=== PATIENT | male | born 1950 | race Caucasian/White ===

== ENCOUNTER 2018-11-01 08:30 | Day surgery (SDC) | payer OTHER ==
[~2018-11-01] VITALS: Ht 190.5 cm; Wt 86.1 kg
[~2018-11-01 08:30] MED LIST: ACID REDUCER 1150 MG PO; ALBU90OI61 INH; AMIT25 PO; AMIT50 PO; Bentyl20 MG PO; FLUT1DIS2 INH; FURO20 PO; HYDR1TAB94 PO; LEVSOD75 PO; LISI5 PO; Lopressor 25 mg25 MG PO; METF500 PO; METO25; MIRALAX17 GM PO; OMEPRAZOLE MAGN20 MG PO; ONDA4ODT MM; POTCHL10ER PO; PREG50 PO; PROM25S PR; Percocet 10-321 EACH PO; SENN187 PO; SIMV10 PO; Simvastatin20 MG PO; TIZANIDINE HCL4 MG PO; Triamcinolone A15 G3 TOP; Vitamin D2000 UNIT PO; XARELTO15 MG PO; XARELTO20 MG PO; Zofran Odt4 MG SL; Zofran4 MG PO
--- NOTE | 2018-11-01 14:53 | NUR ---
11/01/18 5209 Shant Arvizu LATE ENTRY 1346 PATIENT REPORTS 10/10 PAIN IN ABDOMEN. PATIENTS ABDOMEN IS RIGID WHEN PALPATED. PATIENT HAS BEEN TOSSING SIDE TO SIDE MOANING AND HAS NOW BEEN REPOSITIONED SITTING UPRIGHT IN BED. PATIENT REPORTS NAUSEA AND BEGAN BELCHING. PATIENTS BELCHING HAS LEAD TO CLEAR/FOAMY MUCUS EMESIS. EMESIS BAG GIVEN TO PATIENT. DR ARCE INFORMED OF PATIENT STATUS. DR ARCE GAVE VO FOR A 2V ABDOMEN XRAY. MAX IN XRAY NOTIFIED OF PATIENT IN SDU REQUIRING XRAY. FIXED INCOME ANALYST MAX TOOK XRAY OF PATIENT AND THEN CALLED BACK SHORTLY AFTER INFORMING ME ([email or web address]) THAT THE RADIOLOGIST DOES NOT SEE ANY FREE AIR AND PATIENT LOOKS GOOD. DR ARCE INFORMED OF PATIENT IMAGES AND WHAT RADIOLOGIST STATED. DR ARCE SAID THE PATIENT IS OK'D TO BE DISCHARGED. IF PATIENT CONTINUES TO HAVE PAIN HAVE HIM CALL THE DR'S OFFICE IMMEDIATELY. PATIENT INFORMED OF DR ORDERS TO CALL IF HAVING CONTINUED PAIN. PATIENT AGREES WITH PLAN. PAIN REASSESSMENT- PATIENT REPORTS 7/10 PAIN AND IS GETTING BETTER HE IS STANDING UP. NURSE SANDI W/ PATIENT TO HIS RIDE HOME
[2018-11-04] MEDS ORDERED: Zantac150 MG PO (06:51)
== END 2018-11-01 14:35 | disposition home or self-care (01) ==
LOC: ORSCSDS 08:30
PROVIDERS: Internal Medicine Gastroenterology
PROC: 0DB68ZX Excision of Stomach, Via Natural or Artificial Opening Endoscopic, Diagnostic (ICD-10-PCS; principal; 2018-11-01 10:00)
PROC: 0DB98ZX Excision of Duodenum, Via Natural or Artificial Opening Endoscopic, Diagnostic (ICD-10-PCS; principal; 2018-11-01 10:00)
PROC: 0DBM8ZX Excision of Descending Colon, Via Natural or Artificial Opening Endoscopic, Diagnostic (ICD-10-PCS; 2018-11-01 10:00)
PROC: 0DBK8ZX Excision of Ascending Colon, Via Natural or Artificial Opening Endoscopic, Diagnostic (ICD-10-PCS; 2018-11-01 10:00)
PROC: 0DBN8ZX Excision of Sigmoid Colon, Via Natural or Artificial Opening Endoscopic, Diagnostic (ICD-10-PCS; 2018-11-01 10:00)
DX: R11.2 Nausea with vomiting, unspecified (principal); K29.00 Acute gastritis without bleeding; K29.80 Duodenitis without bleeding; K21.9 Gastro-esophageal reflux disease without esophagitis; D12.2 Benign neoplasm of ascending colon; D12.4 Benign neoplasm of descending colon; D12.5 Benign neoplasm of sigmoid colon; K57.30 Diverticulosis of large intestine without perforation or abscess without bleeding; K64.8 Other hemorrhoids; R19.4 Change in bowel habit; R10.9 Unspecified abdominal pain; Z86.010 Personal history of colon polyps; Z80.0 Family history of malignant neoplasm of digestive organs; E11.22 Type 2 diabetes mellitus with diabetic chronic kidney disease; I12.9 Hypertensive chronic kidney disease with stage 1 through stage 4 chronic kidney disease, or unspecified chronic kidney disease; N18.3 Chronic kidney disease, stage 3 (moderate); E03.9 Hypothyroidism, unspecified; E78.00 Pure hypercholesterolemia, unspecified; R26.2 Difficulty in walking, not elsewhere classified; Z87.891 Personal history of nicotine dependence; I48.91 Unspecified atrial fibrillation; Z79.01 Long term (current) use of anticoagulants; Z79.84 Long term (current) use of oral hypoglycemic drugs; Z79.899 Other long term (current) drug therapy
CPT/HCPCS: 74019; 82947; 88305; 88342; J2704; J7120

== ENCOUNTER 2018-11-08 06:30 | Day surgery (SDC) | payer OTHER ==
[~2018-11-08] VITALS: Ht 185.4 cm; Wt 86.0 kg
[~2018-11-08 06:30] MED LIST changes: +Zantac150 MG PO
--- NOTE | 2018-11-08 07:34 | NUR ---
DR PENA SPEAKING WITH FRIDA ABOUT HIM DRINKING A CUP OF COFFEE AT 0600 TODAY.
--- NOTE | 2018-11-08 07:42 | NUR ---
PT HAS ELECTED TO WAIT UNTIL 1000 FOR HIS YOMAIRA/CARDIOVERSION. CALL LIGHT IN REACH.
--- NOTE | 2018-11-08 08:09 | NUR ---
PT MOVED TO RECOVERY ROOM WHILE WAITING. CALL LIGHT IN REACH.
--- NOTE | 2018-11-08 10:08 | NUR ---
PT MOVED BACK TO PROCEDURE ROOM FOR YOMAIRA/CARDIOVERSION. CALL LIGHT IN REACH.
--- NOTE | 2018-11-08 10:46 | NUR ---
DR PENA ARRIVED. TIMEOUT COMPLETED.
--- NOTE | 2018-11-08 10:50 | NUR ---
RT IN ROOM.
--- NOTE | 2018-11-08 11:01 | NUR ---
YOMAIRA COMPLETE. PT TOLERATED WELL.
--- NOTE | 2018-11-08 11:08 | NUR ---
200 J SYNCHRONIZED SHOCK DELIVERED. PT TOLERATED WELL.
--- NOTE | 2018-11-08 11:42 | NUR ---
PT EASILY AWAKEN. PT DENIES CP. CALL LIGHT IN REACH.
--- NOTE | 2018-11-08 12:01 | NUR ---
PT DRANK SIPS OF WATER WITH NO ASPIRATION.
--- NOTE | 2018-11-08 12:17 | NUR ---
FULL REPORT PROVIDED ARSLAN PATTERSON TO ASSUME CARE OF PT.
--- NOTE | 2018-11-08 13:10 | NUR ---
DR PENA IN TO SEE PT. PT HR REMAINS STABLE AT 60. PER DR JEAN NICOLAS TO DC. PT DENIES QUESTIONS. PT DC TO HOME VIA ESCORT BY .
== END 2018-11-08 22:55 | disposition home or self-care (01) ==
LOC: MHTC 06:30
DX: I48.91 Unspecified atrial fibrillation (principal); I48.92 Unspecified atrial flutter; I34.0 Nonrheumatic mitral (valve) insufficiency; R07.89 Other chest pain; E78.2 Mixed hyperlipidemia; K21.9 Gastro-esophageal reflux disease without esophagitis; I10 Essential (primary) hypertension; E11.9 Type 2 diabetes mellitus without complications; J44.9 Chronic obstructive pulmonary disease, unspecified; E03.9 Hypothyroidism, unspecified; E78.5 Hyperlipidemia, unspecified; M54.9 Dorsalgia, unspecified; G89.29 Other chronic pain; Z87.891 Personal history of nicotine dependence; Z88.8 Allergy status to other drugs, medicaments and biological substances; Z88.5 Allergy status to narcotic agent; Z79.899 Other long term (current) drug therapy; Z79.84 Long term (current) use of oral hypoglycemic drugs
CPT/HCPCS: 82947; 92960; 93005; 93010; 93312; 93325; 99152; J2250; J2310; J3010; J7030

== ENCOUNTER 2021-05-14 21:49 | Inpatient (IN) | payer OTHER ==
[~2021-05-14] VITALS: Ht 185.4 cm; Wt 87.0 kg
[~2021-05-14 21:49] MED LIST changes: +Vitamin D1000 UNI1 PO; -Vitamin D2000 UNIT PO; -XARELTO15 MG PO
[2021-05-14 22:24] LABS: BASOPHILS ABSOLUTE AUTO 0.07 K/mm3 (0.00-0.23); BASOPHILS PERCENT AUTO 1 % (0-2); EOSINOPHILS ABSOLUTE AUTO 0.17 K/mm3 (0.00-0.68); EOSINOPHILS PERCENT AUTO 2 % (0-6); Hematocrit 37.1 % (37.0-53.0); Hemoglobin 12.4 g/dL (13.5-17.5); IMMATURE GRAN ABSOLUTE AUTO 0.02 K/mm3 (0.00-0.10); IMMATURE GRAN PERCENT AUTO 0 % (0-1); LYMPHOCYTES ABSOLUTE AUTO 2.52 K/mm3 (0.84-5.20); LYMPHOCYTES PERCENT AUTO 33 % (21-46); MONOCYTES PERCENT AUTO 9 % (4-13); Mean Corpuscular HGB 30.8 pg (26.0-34.0); Mean Corpuscular HGB Conc 33.4 g/dL (31.5-36.5); Mean Corpuscular Volume 92 fL (80-100); Mean Platelet Volume 9.3 fL (9.1-12.4); NEUTROPHILS PERCENT AUTO 54 % (41-73); Platelet Count 273 K/mm3 (150-400); RDW Coefficient Variation 13.2 % (11.7-14.2); RDW Standard Deviation 45.2 fL (35.1-46.3); Red Blood Cell Count 4.02 M/mm3 (4.30-5.90); White Blood Cell Count 7.58 K/mm3 (4.00-11.30)
[2021-05-14 22:42] LABS: Albumin, Blood 3.4 g/dL (3.4-5.0); Albumin/Globulin Ratio 1.1 (0.8-1.8); Bilirubin, Total 0.3 mg/dL (0.1-1.0); Bun/Creatinine Ratio 12.9 (12.0-20.0); Calcium, Blood 8.7 mg/dL (8.5-10.1); Creatinine, Blood 1.55 mg/dL (0.60-1.20); Globulin, Blood 3.1 g/dL (2.2-4.0); Magnesium, Blood 2.1 mg/dL (1.6-2.4); Potassium, Blood 4.4 mmol/L (3.5-5.5); Total Protein, Blood 6.5 g/dL (6.4-8.2)
[2021-05-14 22:47] LABS: Troponin I 0.705 ng/mL (0.000-0.040)
[2021-05-14] MEDS ORDERED: FAMO10 PO (22:48)
[2021-05-14 23:26] LABS: Influenza A, PCR NEGATIVE (NEGATIVE); Influenza B, PCR NEGATIVE (NEGATIVE); Resp Syncytial Virus, PCR NEGATIVE (NEGATIVE); SARS-Cov-2 (COVID-19) PCR, MMC NEGATIVE (NEGATIVE)
[2021-05-15 05:54] LABS: BASOPHILS ABSOLUTE AUTO 0.09 K/mm3 (0.00-0.23); BASOPHILS PERCENT AUTO 1 % (0-2); EOSINOPHILS ABSOLUTE AUTO 0.11 K/mm3 (0.00-0.68); EOSINOPHILS PERCENT AUTO 2 % (0-6); Hematocrit 38.6 % (37.0-53.0); Hemoglobin 13.1 g/dL (13.5-17.5); IMMATURE GRAN ABSOLUTE AUTO 0.02 K/mm3 (0.00-0.10); IMMATURE GRAN PERCENT AUTO 0 % (0-1); LYMPHOCYTES ABSOLUTE AUTO 3.32 K/mm3 (0.84-5.20); LYMPHOCYTES PERCENT AUTO 44 % (21-46); MONOCYTES ABSOLUTE AUTO 0.73 K/mm3 (0.16-1.47); MONOCYTES PERCENT AUTO 10 % (4-13); Mean Corpuscular HGB Conc 33.9 g/dL (31.5-36.5); Mean Corpuscular Volume 91 fL (80-100); NEUTROPHILS ABSOLUTE AUTO 3.25 K/mm3 (1.96-9.15); NEUTROPHILS PERCENT AUTO 43 % (41-73); Platelet Count 248 K/mm3 (150-400); RDW Coefficient Variation 13.2 % (11.7-14.2); RDW Standard Deviation 44.4 fL (35.1-46.3); Red Blood Cell Count 4.23 M/mm3 (4.30-5.90); White Blood Cell Count 7.52 K/mm3 (4.00-11.30)
[2021-05-15 06:08] LABS: Bun/Creatinine Ratio 11.4 (12.0-20.0); Calcium, Blood 8.7 mg/dL (8.5-10.1); Creatinine, Blood 1.4 mg/dL (0.60-1.20); Potassium, Blood 4.1 mmol/L (3.5-5.5)
--- NOTE | 2021-05-15 06:15 | NUR ---
SHIFT SUMMERY: PT ARRIVED FROM ER AROUND 2AM ADMITTED WITH A NSTEMI. PT WAS HAVING SIGNIFICANT CHEST PAIN UPON ARRIVAL TO UNIT WELL VOMITING AND DIAPHORESIS. PT WAS GIVEN SL NITRO, FENTANYL, AND ZOFRAN. PT HAS HAD NO FURTHER EPISODES OF ACUTE CHEST PAIN SINCE THAT TIME. PT IS ON A HEPARIN DRIP. HE IS ALERT AND ORIENTED X 4. PT HAS HAD INTERMITTENT ASYMPTOMATIC BRADYCARDIA WITH NORMAL BLOOD PRESSURES.
--- NOTE | 2021-05-15 09:00 | NUR ---
ASSUMED CARE: REPORT RECEIVED FROM JOSSELYN Chatman RN. ASSUMED CARE OF THIS PT AT APPROX 0700. ON ASSESSMENT, THE PT IS RESTING QUIETLY. HE AWAKENS EASILY TO VERBAL STIMULUS & IS ALERT/ ORIENTED AT THAT TIME. HE BECOMES NAUSEOUS QUICKLY AFTER WAKING & BEGINS HAVING EPISODES OF INTERMITTENT DRY HEAVING/ VOMITING. ZOFRAN PER EMAR. ONCE N/V RESOLVED, THE PT HAS C/O INCREASED CP. HE RATES THIS PAIN 8/10, CENTRALLY LOCATED IN HIS CHEST & CONSTANT IN NATURE. NITRO PER EMAR x1 DOSE W/ CP DECREASED TO 4/10 WHICH THE PT STS IS TOLERABLE. MONITOR SHOWS SB-SR W/ HR 40s WHILE PT RESTING, INCREASED TO 60s WHEN AWAKE. BP STABLE. LS CLEAR T/O, PT ON RA W/ O2 SATS > 92%. NPO R/T PENDING PROCEDURE & N/V. VOIDS W/O DIFFICULTY USING URINAL INDEPENDENTLY. SKIN OVERALL INTACT, PT ABLE TO REPOSITION SELF FOR COMFORT W/O DIFFICULTY. WILL CONTINE TO MONTOR & UPDATE NEEDED.
--- NOTE | 2021-05-15 10:00 | NUR ---
DR HA: PROVIDER CONSULTED THIS AM & HAS ARRIVED AT BEDSIDE TO EVAL PT. DISCUSSED SYPTOMATIC CP & INCREASING CRITICAL HIGH TROPONIN, SHE FEELS THAT A CORONARY ANGIOGRAM IS NECESSARY AT THIS TIME & HAS CONSENTED THE PT. PROVIDER WILL CONTACT PRIMER SUPERVISOR TEAM & NOTIFY THIS RN W/ AN APPROXIMATE TIME FOR PROCEDURE ONCE ESTABLISHED.
--- NOTE | 2021-05-15 11:20 | NUR ---
INGREDIENT SCALER TEAM: INGREDIENT SCALER RNs AT BEDSIDE TO TAKE PT FOR PROCEDURE. HEPARIN DRIP PLACED ON STANDBY & DISCONNECTED AT 1110, PT OUT OF ROOM TO [facility]ART CENTER AT 1115.
--- NOTE | 2021-05-15 13:05 | NUR ---
RETURN FROM USER EXPERIENCE LEAD: PT BACK TO ROOM ICU-15 AT 1255 S/P CORONARY ANGIOGRAM. HE RECEIVED TWO STENTS, TO PROX & MID LAD, PER REPORT. THERE IS RIGHT RADIAL ACCESS W/ TR BAND & WRIST IMMBOLIZER BOARD IN PLACE. TR BAND INFLATED W/ 13 CC AIR AT TIME OF PLACEMENT. THE PT's CURRENT C/O CP ARE 3-4/10 & IMPROVING PER HIS STATEMENT. HEPARIN IS NOT TO BE RESUMED, PHARMACY NOTIFIED. VSS.
--- NOTE | 2021-05-15 14:52 | NUR ---
UPDATE: CALL TO DR AGUILERA REGARDING PT's CONTINUED C/O NAUSEA & VOMITING. ORDERS PLACED FOR ADDITIONAL NOW DOSE OF ZOFRAN & PROMETHAZINE ALSO ORDERED TO BE GIVEN AFTER ZOFRAN IF N/V NOT IMPROVED.
--- NOTE | 2021-05-15 17:23 | NUR ---
SHIFT SUMMARY: NO ACUTE CHANGES SINCE PRIOR UPDATES. PT REMAINS A&O TO ALL, CONTINUES TO HAVE INTERMITTENT C/O NAUSEA W/ DRY HEAVING & EMESIS. 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 LS REMAIN CLEAR, PT ON RA W/ O2 SATS > 92%. MONITOR SHOWS SB-SR W/ HR 40-60s, BP INCREASED W/ EPISODES OF N/V OR PAIN R/T MUSCLE CRAMPS. TR BAND IN PLACE TO R WRIST, BEING SLOWLY DEFLATED R/T HTN - SEE CATH SITE INTERVENTION. THE PT IS CURRENTLY DENYING CP OR PRESSURE. HE HAS BEEN UNABLE TO TOLERATE ANY ORAL INTAKE DURING THIS SHIFT, INCLUDING PO MEDS. VOIDS URINE USING URINAL W/O DIFFICULTY. SKIN CONDITION OVERALL INTACT, PT REPOSITIONS SELF FOR COMFORT. WILL CONTINUE TO MONITOR & REPORT OFF TO ONCOMING RN.
--- NOTE | 2021-05-15 19:30 | NUR ---
ASSUMED PT CARE REPORT WITH SOPHIE GRAF RN AT 1900, ASSUMED PT CARE. PT FOUND TO BE ALERT AND ORIENTED. ANSWERS QUESTIONS APPROPRIATELY. PT DENIES CP AND DENIES SOB. C/O ABD PAIN AND NAUSEA (THIS IS A CONSTANT PROBLEM THAT HE HAS BEEN DEALING WITH FOR AWHILE). ABD SOFT AND SLIGHTLY TENDER. BOWEL SOUNDS HYPOACTIVE. PT VOIDS PER URINAL. POOR APPETITE AT THIS TIME. PT HAS 18G TO LEFT AC, SL, SITE WNL, DRESSING C/D/I. LUNG SOUNDS CLEAR. PT ON ROOM AIR. HR SINUS TRISH IN THE 50S, SYSTOLIC BP WNL. PT HYPERTENSIVE AT TIMES WITH DRY HEAVING. PT MOVES ALL EXTREMITIES W/O ISSUE. PLAN TO REMOVE TR BAND AND PLACE A TEGADERM (WILL LEAVE WRIST IMMOBILIZER IN PLACE). PLAN TO MEDICATE WITH PRN FENTANYL AND ZOFRAN. CALL LIGHT IN REACH. SEE FULL SHIFT ASSESSMENT.
--- NOTE | 2021-05-15 21:20 | NUR ---
UPDATE SPOKE WITH DR NIRALI LOYD PTS CONTINUED ABD PAIN AND NAUSEA. ORDERS RECEIVED TO INCREASE FENTANYL TO 75MCG Q4HRS. ORDERS FOR REGLAN 10MG Q6HRS RECEIVED.
[2021-05-16 04:11] LABS: Hematocrit 40.1 % (37.0-53.0); Hemoglobin 14.3 g/dL (13.5-17.5); Mean Corpuscular HGB 31.6 pg (26.0-34.0); Mean Corpuscular HGB Conc 35.7 g/dL (31.5-36.5); Mean Corpuscular Volume 89 fL (80-100); Mean Platelet Volume 9.1 fL (9.1-12.4); Platelet Count 264 K/mm3 (150-400); RDW Coefficient Variation 13.2 % (11.7-14.2); RDW Standard Deviation 42.9 fL (35.1-46.3); Red Blood Cell Count 4.53 M/mm3 (4.30-5.90); White Blood Cell Count 11.67 K/mm3 (4.00-11.30)
[2021-05-16 04:34] LABS: Albumin, Blood 3.7 g/dL (3.4-5.0); Anion Gap 11 mmol/L (6-16); Blood Urea Nitrogen 18 mg/dL (8-24); Bun/Creatinine Ratio 12.4 (12.0-20.0); CO2, Blood 21 mmol/L (21-32); Calcium, Blood 9.1 mg/dL (8.5-10.1); Chloride, Blood 104 mmol/L (98-108); Creatinine, Blood 1.45 mg/dL (0.60-1.20); Glomerular Filtration Rate 48 (60-); Glucose, Blood 216 mg/dL (70-99); Phosphorus, Blood 2.9 mg/dL (2.5-4.9); Potassium, Blood 3.8 mmol/L (3.5-5.5); Sodium, Blood 136 mmol/L (136-145)
--- NOTE | 2021-05-16 06:30 | NUR ---
SHIFT SUMMARY PT REMAINS ALERT AND ORIENTED. STILL NAUSEATED AND VOMITS. STILL C/O ABD PAIN. PT HYPERTENSIVE THIS AM WITH VOMITING. LUNG SOUNDS CLEAR. SATS >92% ON RA. ABD SOFT AND TENDER. PT C/O CRAMPS TO LEGS AND FEET. SKIN INTACT. PT USES CALL LIGHT, VOIDS PER URINAL. TOLERATES WATER. POOR APPETITE. NO SIGNIFICANT CHANGES THROUGH SHIFT. WILL REPORT TO ONCOMING SHIFT.
[2021-05-16] MEDS ORDERED: AMLO5 PO (13:00)
[2021-05-16] MEDS ORDERED: ASPI81CH PO (13:01)
[2021-05-16] MEDS ORDERED: CLOP75 PO (13:01)
[2021-05-16] MEDS ORDERED: METO5A PO (13:04)
[2021-05-16] MEDS ORDERED: ONDA4ODT MM (13:05)
[2021-05-16] MEDS ORDERED: NITR.4SL SL (13:05)
[2021-05-16] MEDS ORDERED: PROP10 PO (13:07)
--- NOTE | 2021-05-16 14:43 | NUR ---
DISCHARGE NOTE: ASSUMED CARE OF PT AT 0700. PT IS ALERT AND ORIENTEDX3, ABLE TO COMMUNICATE NEEDS. PT IS IN SR WITH HR IN THE 60'S, SBP 150'S. PT DENIES CHEST PAIN. C/O NAUSEA, MEDS GIVEN PER EMAR WITH NO EFFECT. PT STATES HIS NAUSEA IS CHRONIC, USES MARIJUANA AT HOME TO ALLEVIATE IT. PT'S RIGHT RADIAL CATH SITE IS FREE FROM OZZING, HEMATOMA, REDNESS. SITE IS COVERED WITH TEGADERM, RIGHT RADIAL PULSE STRONG, DISTAL DIGITS PINK AND WARM, SENSATION INTACT. PT REMAINED ON RA WITH SPO2 ABOVE 90% PT DENIED PAIN. DISCHARGE PAPERWORK REVEWIED WITH PATIENT. DISCHARGED AT 1400.
== END 2021-05-16 14:10 | disposition home or self-care (01) | DRG 247 ==
LOC: ER 21:49 → ICUW 23:47
PROVIDERS: Family Medicine; Internal Medicine; Student in an Organized Health Care Education/Training Program; ADMIT Family Medicine
PROC: 3E02340 Introduction of Influenza Vaccine into Muscle, Percutaneous Approach (ICD-10-PCS; 2021-05-14)
PROC: 027035Z Dilation of Coronary Artery, One Artery with Two Drug-eluting Intraluminal Devices, Percutaneous Approach (ICD-10-PCS; principal; 2021-05-15)
PROC: 6A750Z5 Ultrasound Therapy of Heart, Single (ICD-10-PCS; 2021-05-15)
PROC: B2111ZZ Fluoroscopy of Multiple Coronary Arteries using Low Osmolar Contrast (ICD-10-PCS; 2021-05-15)
DX: I21.4 Non-ST elevation (NSTEMI) myocardial infarction (principal); I48.20 Chronic atrial fibrillation, unspecified; N18.30 Chronic kidney disease, stage 3 unspecified; Z88.5 Allergy status to narcotic agent; E11.22 Type 2 diabetes mellitus with diabetic chronic kidney disease; E78.5 Hyperlipidemia, unspecified; E03.9 Hypothyroidism, unspecified; I44.0 Atrioventricular block, first degree; F12.10 Cannabis abuse, uncomplicated; Z88.8 Allergy status to other drugs, medicaments and biological substances; Z98.890 Other specified postprocedural states; Z87.891 Personal history of nicotine dependence; Z88.6 Allergy status to analgesic agent; I48.0 Paroxysmal atrial fibrillation; Z20.822 Contact with and (suspected) exposure to COVID-19; F32.A Depression, unspecified; K21.9 Gastro-esophageal reflux disease without esophagitis; Z90.49 Acquired absence of other specified parts of digestive tract; Z23 Encounter for immunization
CPT/HCPCS: 0241U; 36415; 71045; 76937; 80048; 80053; 80069; 82947; 83735; 83880; 84484; 85025; 85027; 85347; 85379; 85730; 92978; 93005; 93010; 93454; 96374; 99152; 99153; 99285-25; A9270; C1725; C1753; C1769; C1874; C1887; C1894; C8929; C9600; J1644; J1885; J2250; J2270; J2405; J2550; J2765; J3010; J3246; J7030; J7050; Q9957; Q9967

== ENCOUNTER 2021-05-17 23:49 | Inpatient (IN) | payer OTHER ==
[~2021-05-17] VITALS: Ht 185.4 cm; Wt 85.4 kg
[~2021-05-17 23:49] MED LIST changes: +AMLO5 PO; +ASPI81CH PO; +CLOP75 PO; +FAMO10 PO; +METO5A PO; +NITR.4SL SL; +PROP10 PO
[2021-05-18 00:15] LABS: Calcium, Ionized (POC) 1.08 mmol/L (1.10-1.46); Chloride (POC) 101 mmol/L (98-108); Glucose (ISTAT POC) 257 mg/dL (70-99); Hemoglobin (POC) 12.6 g/dL (13.5-17.5); Potassium (POC) 4.4 mmol/L (3.5-5.5); Sodium (POC) 135 mmol/L (135-148); Total CO2 (POC) 22 mmol/L (21-32)
[2021-05-18 00:19] LABS: BASOPHILS ABSOLUTE AUTO 0.06 K/mm3 (0.00-0.23); BASOPHILS PERCENT AUTO 1 % (0-2); EOSINOPHILS ABSOLUTE AUTO 0.05 K/mm3 (0.00-0.68); EOSINOPHILS PERCENT AUTO 1 % (0-6); Hematocrit 39.2 % (37.0-53.0); Hemoglobin 13.1 g/dL (13.5-17.5); IMMATURE GRAN ABSOLUTE AUTO 0.03 K/mm3 (0.00-0.10); IMMATURE GRAN PERCENT AUTO 0 % (0-1); LYMPHOCYTES ABSOLUTE AUTO 4.06 K/mm3 (0.84-5.20); LYMPHOCYTES PERCENT AUTO 40 % (21-46); MONOCYTES ABSOLUTE AUTO 0.95 K/mm3 (0.16-1.47); MONOCYTES PERCENT AUTO 9 % (4-13); Mean Corpuscular HGB 31.6 pg (26.0-34.0); Mean Corpuscular HGB Conc 33.4 g/dL (31.5-36.5); Mean Corpuscular Volume 95 fL (80-100); Mean Platelet Volume 9.5 fL (9.1-12.4); NEUTROPHILS ABSOLUTE AUTO 5.13 K/mm3 (1.96-9.15); NEUTROPHILS PERCENT AUTO 50 % (41-73); Platelet Count 251 K/mm3 (150-400); RDW Coefficient Variation 13.5 % (11.7-14.2); Red Blood Cell Count 4.14 M/mm3 (4.30-5.90); White Blood Cell Count 10.28 K/mm3 (4.00-11.30)
[2021-05-18 00:49] LABS: Albumin, Blood 2.9 g/dL (3.4-5.0); Albumin/Globulin Ratio 0.9 (0.8-1.8); Bilirubin, Total 0.6 mg/dL (0.1-1.0); Bun/Creatinine Ratio 16.7 (12.0-20.0); Calcium, Blood 8.1 mg/dL (8.5-10.1); Creatinine, Blood 2.76 mg/dL (0.60-1.20); Globulin, Blood 3.2 g/dL (2.2-4.0); Potassium, Blood 4.4 mmol/L (3.5-5.5); Total Protein, Blood 6.1 g/dL (6.4-8.2)
[2021-05-18 00:51] LABS: Troponin I 13.5 ng/mL (0.000-0.040)
[2021-05-18 00:57] LABS: Source, Urine Catheter
[2021-05-18 00:59] LABS: Bilirubin, Urine Neg (Neg); Blood, Urine Neg (Neg); Glucose Qualitative, Urine Neg (Neg); Ketones, Urine 1+ (Neg); Leukocyte Esterase, Urine 1+ (Neg); Nitrite, Urine Neg (Neg); Protein, Urine 2+ (Neg); Specific Gravity, Urine 1.025 (1.003-1.022); Urobilinogen, Urine NORM (Normal)
[2021-05-18 01:19] LABS: Appearance, Urine Clear (Clear); Color, Urine Yellow (P-Yellow)
[2021-05-18 01:20] LABS: Amorphous Light (0-Heavy); Bacteria Few /hpf; Mucus Light (0-Heavy); Red Blood Cells, Urine Not Seen /hpf (0-2); Squamous Epithelial Cells Few /hpf (Few); White Blood Cells, Urine 0-2 /hpf (0-5)
--- NOTE | 2021-05-18 04:00 | NUR ---
PT ARRIVES TO ROOM ICU 11 FROM [facility] AT 0305 S/P ANGIOGRAM. PER REPORT NO OCCLUSSION FOUND. WAS PREMED WITH HEPARIN. ON AGGRASTAT AT 18 ML/HOUR. PROPOFOL AT 10 MCG'S/KG/MIN THIS WAS INCREASED TO 30 MCG'S FOR SEDATION. DOPAMINE AT [address] ECHAVARRIA, ORDER IS TO TRY AND WEAN DOPAMINE TO OFF. TR BAND IN PLACE TO RIGHT WRIST. RADIAL ACCESS WITH PRESENTING SMALL AMOUNT OF BLOOD UNDER BAND. NO HEMATOMA NOTED. WILL MONITOR CLOSELY. WILL REVIEW CHART AND PLAN OF CARE FOR THIS PT.
--- NOTE | 2021-05-18 06:29 | NUR ---
HAVE TITRATED DOPAMINE DOWN TO 10 MCG'S. PT MAINTAINS MAP > 60. PT HAS BEEN BRADYCARDIC WITH RATES TO LOW 50'S. WILL CLOSELY MONITOR ACKNOWLEDGING THAT PT DID REQUIRE ATROPINE IN ROUTE PER EMS, AND IN ED. WITH EXTERNAL PACING. PROPOFOL AT 20 MCG'S/KG/MIN. PT TOLERATING VENT WELL. PT DOES RESPOND DURING ORAL CARE. WILL CONTINUE TO MONITOR PT, AND WILL REPORT OFF TO ONCOMING RN. DID NOTIFY ANSWERING SERVICE FOR ANIMAL CRUELTY INVESTIGATOR OF CONSULT.
--- NOTE | 2021-05-18 07:31 | NUR ---
REPORT RECIEVED FROM ARSLAN ADHIKARI,DIRECTOR OF ASSESSING. PATIENT IS SEDATED ON PROPOFOL GTT AT 60 MCG/KG/MIN. HE MOVES EVERYTHING X4. HE HAS TRIED TO SIT UP IN BED AND REACHING FOR HIS ETT THIS MORNING WHEN HIS SEDATION WAS DOWN TO 20 MCG/KG/MIN. PAULY 3 BRISK. HIS IS IN NSB 40-50'S, BP 115/77 ON DOPAMINE GTT TO KEEP MAP >65. TR BAND ON RIGHT WRIST, JUST RELEASED 1 ML. WILL CONTINUE TO DECREASE AIR IN TR BAND. WRIST LOOKS GOOD, NO OOZING FROM SITE. GOOD CAP REFILL. PPP. LUNGS CLEAR. ON VENT AC/VC TV 480, RATE 18, FIO2 30%, PEEP 5. BOWEL TONES +. NO BM. OGT 55 CM TO LIP. F/C CLEAR YELLOW URINE. SKIN PALE BUT IN GOOD CONDITION. LFA #20 TEJAS PIV, RFA #20 ETJAS PIV BOTH HAVE FLUIDS RUNNING THROUGH THEM. TURNED PATIENT TO RIGHT SIDE.
--- NOTE | 2021-05-18 09:25 | NUR ---
SEDATION TURNED OFF AT 0925 TO DO SEDATION VACATION. CALLED RT TO COME IN 10 MINUTES TO START SBT ON PATIENT.
--- NOTE | 2021-05-18 10:10 | NUR ---
PATIENT EXTUBATED WITH MD AT BEDSIDE AT 1006, DONE BY RT. OGT WAS ALSO REMOVED AT SAME TIME. HIS F/C WAS DC'D TOO. PATIENT IS RESTLESS AND AGITATED AND STATES HE NEVER WANTS THE BREATHING TUBE AGAIN. HE SAID HE IS SUPPOSED TO BE A DNR. HE IS CURRENTLY HOLDING A URINAL TO VOID. STILL REMOVING AIR FROM TR BAND ON RIGHT WRIST.
--- NOTE | 2021-05-18 13:39 | NUR ---
ECHO AND LAB AT BEDSIDE TO DO TEST.
[2021-05-18 14:14] LABS: Calcium, Blood 8.5 mg/dL (8.5-10.1); Creatinine, Blood 2.16 mg/dL (0.60-1.20); Potassium, Blood 4.2 mmol/L (3.5-5.5)
--- NOTE | 2021-05-18 18:04 | NUR ---
PATIENT IS STABLE AND DOING WELL. HE HATES THE ICU BEDS. HAD MD GO AND TALK TO HIM ABOUT CODE STATUS. HE WAS CHANGED TO DNR/DNI. HIS STATUS WAS CHANGED TO PCU. HE IS ON ROOM AIR. SB 40-50'S, BP 80-130/60-80. REMAINS OFF DOPAMINE GTT. HE WOULD LIKE TO GO HOME TOMORROW IF POSSIBLE. HIS ROOM MATE CALLED EARLY IN SHIFT FOR AN UPDATE.
--- NOTE | 2021-05-18 19:45 | NUR ---
Assumed care after report recv'd assessment complete. Right wrist cath site soft, no swelling. Large amount of bruising noted. Denies pain at this time.
--- NOTE | 2021-05-19 06:14 | NUR ---
Rested off and on through night. Troponins trending down. vital signs remain stable, no chest pain or other complaints through night.
[2021-05-19 07:17] LABS: BASOPHILS ABSOLUTE AUTO 0.07 K/mm3 (0.00-0.23); BASOPHILS PERCENT AUTO 1 % (0-2); EOSINOPHILS ABSOLUTE AUTO 0.07 K/mm3 (0.00-0.68); EOSINOPHILS PERCENT AUTO 1 % (0-6); Hematocrit 37.5 % (37.0-53.0); Hemoglobin 13.1 g/dL (13.5-17.5); IMMATURE GRAN ABSOLUTE AUTO 0.03 K/mm3 (0.00-0.10); IMMATURE GRAN PERCENT AUTO 0 % (0-1); LYMPHOCYTES ABSOLUTE AUTO 3.39 K/mm3 (0.84-5.20); LYMPHOCYTES PERCENT AUTO 35 % (21-46); MONOCYTES ABSOLUTE AUTO 1.01 K/mm3 (0.16-1.47); MONOCYTES PERCENT AUTO 10 % (4-13); Mean Corpuscular HGB 31.6 pg (26.0-34.0); Mean Corpuscular HGB Conc 34.9 g/dL (31.5-36.5); Mean Platelet Volume 9.4 fL (9.1-12.4); NEUTROPHILS ABSOLUTE AUTO 5.15 K/mm3 (1.96-9.15); NEUTROPHILS PERCENT AUTO 53 % (41-73); Platelet Count 221 K/mm3 (150-400); RDW Coefficient Variation 13.2 % (11.7-14.2); RDW Standard Deviation 43.8 fL (35.1-46.3); Red Blood Cell Count 4.15 M/mm3 (4.30-5.90); White Blood Cell Count 9.72 K/mm3 (4.00-11.30)
[2021-05-19 07:44] LABS: Albumin, Blood 3.1 g/dL (3.4-5.0); Anion Gap 10 mmol/L (6-16); Blood Urea Nitrogen 35 mg/dL (8-24); Bun/Creatinine Ratio 19.9 (12.0-20.0); CO2, Blood 22 mmol/L (21-32); Calcium, Blood 8.7 mg/dL (8.5-10.1); Chloride, Blood 107 mmol/L (98-108); Creatinine, Blood 1.76 mg/dL (0.60-1.20); Glomerular Filtration Rate 39 (60-); Glucose, Blood 157 mg/dL (70-99); Phosphorus, Blood 2.6 mg/dL (2.5-4.9); Potassium, Blood 3.6 mmol/L (3.5-5.5); Sodium, Blood 139 mmol/L (136-145)
[2021-05-19 08:20] LABS: Mean Corpuscular Volume 90 fL (80-100)
--- NOTE | 2021-05-19 08:24 | NUR ---
PATIENT UP IN CHAIR FOR BREAKFAST, HE DIDN'T LIKE IT SO DECLINED TO EAT IT. MD AT BEDSIDE. REPORT CALLED TO ARSLAN PATIÑO. TRANSFER PATIENT TO ROOM PCU 1. PATIENT VOIDING PER URINAL. ASKED MD TO REORDER HOME MEDICATION OF 10 MG OXYCODONE PO PRN FOR PAIN. HE NORMALLY TAKES IT AT HOME ONCE IN THE MORNING AND ONCE AT NIGHT FOR BED TIME. HE IS CURRENTLY HAVING 9/10 BACK PAIN THAT IS CHRONIC FOR HIM.
--- NOTE | 2021-05-19 09:07 | NUR ---
PT TRANSFERRED FROM ICU 0900. TELE PLACED ON PT, VSS ON RA. PT REPORTED PAIN IN BACK (CHRONIC PAIN), PRN NORCO GIVEN.
--- NOTE | 2021-05-19 11:54 | NUR ---
PT A&O. TELE: SB 50S. VSS ON RA. IVS REMOVED. RIGHT RADIAL INSTRUCTIONS DISCUSSED WITH PT. TESS CALLED AND PT D/C HOME.
== END 2021-05-19 11:57 | disposition home or self-care (01) | DRG 208 ==
LOC: ER 23:49 → ICUW 05-18 01:19 → PCU 05-19 08:47
PROVIDERS: Emergency Medicine; Internal Medicine Critical Care Medicine; ADMIT Internal Medicine Cardiovascular Disease
PROC: B2111ZZ Fluoroscopy of Multiple Coronary Arteries using Low Osmolar Contrast (ICD-10-PCS; principal; 2021-05-18)
PROC: 0BH18EZ Insertion of Endotracheal Airway into Trachea, Via Natural or Artificial Opening Endoscopic (ICD-10-PCS; 2021-05-18)
PROC: 5A1935Z Respiratory Ventilation, Less than 24 Consecutive Hours (ICD-10-PCS; 2021-05-18)
DX: J96.00 Acute respiratory failure, unspecified whether with hypoxia or hypercapnia (principal); I22.9 Subsequent ST elevation (STEMI) myocardial infarction of unspecified site; I21.4 Non-ST elevation (NSTEMI) myocardial infarction; N17.9 Acute kidney failure, unspecified; E03.9 Hypothyroidism, unspecified; I12.9 Hypertensive chronic kidney disease with stage 1 through stage 4 chronic kidney disease, or unspecified chronic kidney disease; E78.00 Pure hypercholesterolemia, unspecified; N18.30 Chronic kidney disease, stage 3 unspecified; I48.0 Paroxysmal atrial fibrillation; Z66 Do not resuscitate; I25.10 Atherosclerotic heart disease of native coronary artery without angina pectoris; G89.29 Other chronic pain; M54.9 Dorsalgia, unspecified; I71.2 Thoracic aortic aneurysm, without rupture; E78.5 Hyperlipidemia, unspecified; E11.22 Type 2 diabetes mellitus with diabetic chronic kidney disease; R00.1 Bradycardia, unspecified; K21.9 Gastro-esophageal reflux disease without esophagitis; F32.A Depression, unspecified; Z88.5 Allergy status to narcotic agent; Z88.8 Allergy status to other drugs, medicaments and biological substances; Z90.49 Acquired absence of other specified parts of digestive tract; Z98.890 Other specified postprocedural states; Z79.51 Long term (current) use of inhaled steroids; Z79.899 Other long term (current) drug therapy; Z79.84 Long term (current) use of oral hypoglycemic drugs
CPT/HCPCS: 31500; 36415; 43753; 51702; 71045; 80047; 80048; 80053; 80069; 81001; 82140; 84484; 85014; 85025; 85347; 87086; 92953; 93005; 93010; 93454; 93567; 94002; 94003; 96365; 96375; 99152; 99153; 99291-25; A9270; C1769; C1887; C1894; C8929; J0330; J0461; J1265; J1644; J1650; J2250; J2370; J2704; J3010; J7030; Q9957; Q9967

== ENCOUNTER 2024-08-24 10:33 | Inpatient (IN) | payer OTHER ==
[~2024-08-24] VITALS: Ht 185.4 cm; Wt 75.4 kg
[2024-08-24 11:12] LABS: Calcium, Ionized (POC) 0.74 mmol/L (1.10-1.46); Chloride (POC) 121 mmol/L (98-108); Glucose (ISTAT POC) 64 mg/dL (70-99); Hemoglobin (POC) 6.5 g/dL (13.5-17.5); Potassium (POC) 2.9 mmol/L (3.5-5.5); Sodium (POC) 147 mmol/L (135-148); Total CO2 (POC) 13 mmol/L (21-32)
[2024-08-24] MEDS ORDERED: Dextrose 50% 50 ML Vial ONE (11:13)
[2024-08-24] MEDS ORDERED: Potassium Chl 20MEQ/Water100ML 100 ML IV SCH (11:20)
[2024-08-24 11:21] LABS: BASOPHILS ABSOLUTE AUTO 0.16 K/mm3 (0.00-0.23); BASOPHILS PERCENT AUTO 2 % (0-2); EOSINOPHILS ABSOLUTE AUTO 1.59 K/mm3 (0.00-0.68); EOSINOPHILS PERCENT AUTO 17 % (0-6); Hemoglobin 11.8 g/dL (13.5-17.5); IMMATURE GRAN ABSOLUTE AUTO 0.02 K/mm3 (0.00-0.10); IMMATURE GRAN PERCENT AUTO 0 % (0-1); LYMPHOCYTES ABSOLUTE AUTO 2.74 K/mm3 (0.84-5.20); LYMPHOCYTES PERCENT AUTO 29 % (21-46); MONOCYTES ABSOLUTE AUTO 0.63 K/mm3 (0.16-1.47); MONOCYTES PERCENT AUTO 7 % (4-13); Mean Corpuscular HGB 30.6 pg (26.0-34.0); Mean Corpuscular HGB Conc 32.8 g/dL (31.5-36.5); Mean Corpuscular Volume 94 fL (80-100); Mean Platelet Volume 9.5 fL (9.1-12.4); NEUTROPHILS ABSOLUTE AUTO 4.43 K/mm3 (1.96-9.15); NEUTROPHILS PERCENT AUTO 46 % (41-73); Platelet Count 203 K/mm3 (150-400); RDW Coefficient Variation 13.9 % (11.7-14.2); RDW Standard Deviation 47.5 fL (35.1-46.3); Red Blood Cell Count 3.85 M/mm3 (4.30-5.90); White Blood Cell Count 9.57 K/mm3 (4.00-11.30)
[2024-08-24 11:38] LABS: Albumin, Blood 3.6 g/dL (3.4-5.0); Albumin/Globulin Ratio 1.1 (0.8-1.8); Bilirubin, Total 0.3 mg/dL (0.1-1.0); Bun/Creatinine Ratio 15.2 (12.0-20.0); Calcium, Blood 8.1 mg/dL (8.5-10.1); Creatinine, Blood 1.78 mg/dL (0.60-1.20); Globulin, Blood 3.2 g/dL (2.2-4.0); Potassium, Blood 5.1 mmol/L (3.5-5.5); Total Protein, Blood 6.8 g/dL (6.4-8.2)
[2024-08-24] MEDS ORDERED: Ondansetron HCl 2 MG / ML 2ML Vial IV PRN (16:40)
[2024-08-24] MEDS ORDERED: FLU VACC TS2024-25(6MOS UP)/PF 45 MCG/0.5 ML SYRINGE IM PRN (16:40)
[2024-08-24] MEDS ORDERED: Acetaminophen 325 MG TABLET PO PRN (16:40)
[2024-08-24] MEDS ORDERED: CALC.25 PO (17:24)
[2024-08-24] MEDS ORDERED: LISI5 PO (17:25)
[2024-08-24] MEDS ORDERED: METO25ER PO (17:26)
[2024-08-24] MEDS ORDERED: METO25ER (17:26)
[2024-08-24] MEDS ORDERED: TIZA4 PO (17:27)
[2024-08-24] MEDS ORDERED: AMIT25 PO (17:28)
[2024-08-24] MEDS ORDERED: JARDIANCE25 MG PO (17:29)
[2024-08-24] MEDS ORDERED: METF500 PO (17:31)
[2024-08-24 17:49] LABS: CHOL/HDL RATIO 1.5; Cholesterol 94 mg/dL (50-200); HDL Cholesterol 61 mg/dL (>39); LDL/HDL RATIO 0.4; Low Density Lipoprotein Chol 21 mg/dL (0-110); Triglycerides 58 mg/dL (30-160); Very Low Density Lipoprot Chol 11 mg/dL (6-32)
[2024-08-24 18:12] VITALS: BP 153/111
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
--- NOTE | 2024-08-24 19:14 | NUR ---
END OF SHIFT SUMMARY: A&Ox4. PLEASANT AND COOPERATIVE WITH CARE. CALLS APPROPRIATELY AND IS ABLE TO ADVOCATE NEEDS EFFECTIVELY. CONTINENT OF BOWEL AND BLADDER c SOME OVERFLOW URINARY INCONTINENCE; WEARS CONDOM CATH AT BASELINE. SBA c FWW FOR AMBULATION. MEDS WHOLE c FLUIDS. DID NOT EAT MUCH DINNER D/T LACK OF APPETITE. BED IN LOWEST POSITION, CALL LIGHT WITHIN REACH, ALL NEEDS MET. REPORT TO ONCOMING NURSE.
[2024-08-24] MEDS ORDERED: TiZANidine HCl 4 MG Tab PO PRN (19:30)
[2024-08-24] MEDS ORDERED: Mometasone/Formoterol MDI 100/5 mcg 13 GM INH SCH (19:45)
[2024-08-24 19:57] VITALS: BP 160/134
[2024-08-24] MEDS ORDERED: Metoprolol Succinate 25 MG TABCR PO SCH (20:00)
[2024-08-24] MEDS ORDERED: Insulin Human Lispro 100 Units/ML 3ML Syringe SC SCH (21:00)
[2024-08-24] MEDS ORDERED: Ciprofloxacin 500 MG Tab PO SCH (21:00)
[2024-08-24] MEDS ORDERED: Apixaban 5 MG Tab PO SCH (21:00)
[2024-08-24] MEDS ORDERED: Melatonin 5 MG Tablet PO ONE (22:20)
--- NOTE | 2024-08-24 22:28 | NUR ---
called the dr to get something for the pt to help him sleep. dr ordered 5mg po melatonin x1
[2024-08-24] MEDS ORDERED: OxyCODONE HCL 5 MG TAB PO PRN (22:45)
--- NOTE | 2024-08-24 23:02 | NUR ---
PT IS EXPERIENCING 10/10 BACK PAIN AND IS REQUESTING SOMETHING FOR BREAK THROUGH PAIN. THE PT STATES HE TAKES OXYCODONE AT HOME FOR PAIN. I ASKED THE PT ABOUT AN ALLERGY TO OXYCODONE BECAUSE ITS STATED HE HAS AN ALLERGY TO CODIENE AND HE SAYS NO HE DOES NOT HAVE AN ALLERGY TO OXYCODONE. I PASSED THIS ON TO PHARMACY WELL. ORDERED 5MG P0 Q4 PRN OXYCODONE FOR PAIN.
[2024-08-25 01:23] VITALS: BP 135/77
[2024-08-25] MEDS ORDERED: FentaNYL Citrate 50 MCG/ML 2 ML Injection IV PRN (02:05)
--- NOTE | 2024-08-25 04:01 | NUR ---
0134 I CALLED HOSPITALIST FOR BREAK THROUGH PAIN MGMT. PT WAS NOT DUE FOR OTHER PAIN MEDICATIONS AND NEEDED SOMETHING FOR 10/10 PAIN. I WAS UNABLE TO GET AHOLD OF THE DR AFTER CALLINF AND WAITING A COUPLE TIMES. AFTER 30-40 MIN I DID GET AHOLD OF HOSPITAIST. HE ORDERED 25-50 MCG OF FENTANYL Q4 PRN. PT BECAME VERY AGITATED FOR HAVING TO WAIT AND WANTED TO LEAVE AMA. I EDUCATED THE PT ON IMPORTANCE OF STAYING AT THE HOSPITAL FOR HEALING AND GAVE EDUCATION. PT HAS BECAME VERY AGITATED THE SHIFT HAS WENT ON BUT PT'S PAIN IS UNDER CONTROL NOW AND PT IS SLEEPING.
[2024-08-25 05:18] VITALS: BP 162/104
[2024-08-25] MEDS ORDERED: Levothyroxine Sodium 0.075 MG Tab PO SCH (06:00)
[2024-08-25 08:11] VITALS: BP 142/105
[2024-08-25] MEDS ORDERED: Empagliflozin 25 MG TAB PO SCH (09:00)
[2024-08-25] MEDS ORDERED: Cholecalciferol 1000 Unit Tablet (=25MCG) PO SCH (09:00)
[2024-08-25] MEDS ORDERED: Amitriptyline HCl 50 MG Tab PO SCH (09:00)
[2024-08-25] MEDS ORDERED: Calcitriol 0.25 MCG Cap PO SCH (09:00)
[2024-08-25] MEDS ORDERED: Atorvastatin 40 MG Tab PO SCH (09:00)
--- NOTE | 2024-08-25 09:52 | NUR ---
Delfin (pt) is awake but seems groggy. Pt reports that he recently had a stroke that has left his left hand no longer functional. Pt is waiting to receive pain medication and seems to be somewhat strained by speaking. Prayed with pt and he thanked me for the visit.
[2024-08-25] MEDS ORDERED: Ondansetron HCl 2 MG / ML 2ML Vial IV PRN (10:55)
[2024-08-25] MEDS ORDERED: Lisinopril 5 MG Tab PO SCH (14:00)
--- NOTE | 2024-08-25 14:11 | NUR ---
NOTE PT NAUESATED AND VOMITTED WHILE WORKING WITH OT THIS AM. CALLED MD FOR ORDER OF ZOFRAN. PT FELT RELIEF AFTER. PT HAD ECHO BUBBLE STUDY TODAY. TECH REPORTED PT IN A FLUTTER AND WIDE QRS. REPORTED TO DR. MARTINEZ, CLARIFIED IF SHE WANTED ORDER FOR TELE. REPORTED NO TELE AT THIS TIME. PT REPORTS NO S/S OF AFLUTTER
[2024-08-25 14:17] VITALS: BP 147/100
--- NOTE | 2024-08-25 18:39 | NUR ---
SHIFT SUMMARY PT A&OX4. PT ADMITTED DUE TO ACUTE CVA. PT REPORTS SOME WEAKNESS ON R SIDE. NO ACUTE CHANGES NOTED IN SHIFT. PT REPORTS PAIN IN LOW BACK. PT ON ROOM AIR. PT REPORTS PAIN. PAIN MANAGED PER EMAR. BLOOD PRESSURE ELEVATED. PT RECEIVED LISINOPRIL THIS AFTERNOON, PER MD. PT IN BED. BED IN LOWEST POSITION. BED ALARM ON, PT EDUCATED TO CALL WHEN NEEDED. PT CAN BE IMPULSIVE AT TIMES. PT ACHS, PT HAS NOT NEEDED COVERAGE TODAY. NO NAUSEA NOTED SINCE THIS AM. PT EATS ADEQUATE. PT USES URINAL TO VOID. PT WALKED DOWN THE MCCRARY AND BACK, STEADY ON FEET WITH CANE.
[2024-08-25 19:38] VITALS: BP 135/88
[2024-08-26 02:08] VITALS: BP 133/105
--- NOTE | 2024-08-26 06:07 | NUR ---
SHIFT SUMM: PT HAS BEEN RELAXING MOST OF THE SHIFT AND DID HAVE HIS DAUGHTER VISIT THIS SHIFT. PT HAS BEEN MEDICATED PER EMAR FOR PAIN MGMT. PT ALSO DID SOME WALKING IN THE HALLWAY. NO INSULIN NEEDED THIS SHIFT. CALL LIGHT IN REACH AND MAKES NEEDS KNOWN.BED ALARM FOR SAFETY.
[2024-08-26 07:22] VITALS: BP 146/104
[2024-08-26 10:33] VITALS: BP 151/96
--- NOTE | 2024-08-26 10:44 | NUR ---
NOTE PT HR ON MONITOR RANGES FROM 40-70 BPM. HELD METOPROLOL THIS AM. DID MANUAL HR ON RADIAL PULSE, IRREGULAR 55BPM. PT REPORTS NO CHEST PAIN DISCOMFORT, DIZZINESS. PT REPORTS "HAD LOW HR ALL HIS LIFE." MONITOR INDICATS HR HAS SOMETIMES BEEN ELEVATED. CALLED DR. LOBATO, LEFT VOICEMAIL.
[2024-08-26] MEDS ORDERED: ELIQUIS5 M2 PO (15:01)
--- NOTE | 2024-08-26 15:52 | NUR ---
DISCHARGE NOTE PT A&OX4. PT ADMITTED DUE TO ACUTE CVA. PT STEADY ON FEET, USES CRUTCHES. WORKED WITH PHYSICAL THERAPY TODAY. PT HAD NO NEW ACUTE CHANGES. DR. LOBATO CLEARED PT FOR DISCHARGE. FAXED MEDS TO PERFERRED PHARM. PT REPORTS SOME PAIN, PAIN MANAGED PER EMAR. WENT OVER DISCHARGE INSTRUCTIONS AND MEDS. PT EXCORTED OUT BY WELLNESS PROGRAM COORDINATOR VIA WHEELCHAIR. IV D/C'D.
== END 2024-08-26 15:47 | disposition home or self-care (01) | DRG 65 ==
LOC: ER 10:33 → MEDS 16:34
PROVIDERS: Physician Assistant; Student in an Organized Health Care Education/Training Program; ADMIT Internal Medicine
DX: I63.9 Cerebral infarction, unspecified (principal); G45.9 Transient cerebral ischemic attack, unspecified; I48.92 Unspecified atrial flutter; Q21.12 Patent foramen ovale; I77.810 Thoracic aortic ectasia; E11.22 Type 2 diabetes mellitus with diabetic chronic kidney disease; I12.9 Hypertensive chronic kidney disease with stage 1 through stage 4 chronic kidney disease, or unspecified chronic kidney disease; E03.9 Hypothyroidism, unspecified; I25.10 Atherosclerotic heart disease of native coronary artery without angina pectoris; Z66 Do not resuscitate; I72.6 Aneurysm of vertebral artery; N18.30 Chronic kidney disease, stage 3 unspecified; E78.00 Pure hypercholesterolemia, unspecified; F32.A Depression, unspecified; K21.9 Gastro-esophageal reflux disease without esophagitis; R29.703 NIHSS score 3; I44.7 Left bundle-branch block, unspecified; G83.31 Monoplegia, unspecified affecting right dominant side; G71.00 Muscular dystrophy, unspecified; I48.91 Unspecified atrial fibrillation; Z95.5 Presence of coronary angioplasty implant and graft; Z88.5 Allergy status to narcotic agent; Z88.8 Allergy status to other drugs, medicaments and biological substances; Z79.51 Long term (current) use of inhaled steroids; Z79.02 Long term (current) use of antithrombotics/antiplatelets; I25.2 Old myocardial infarction; Z79.890 Hormone replacement therapy; Z79.01 Long term (current) use of anticoagulants; Z87.891 Personal history of nicotine dependence
CPT/HCPCS: 70450; 70496; 70498; 80047; 80053; 80061; 82947; 83036; 85014; 85025; 86850; 86900; 86901; 93005; 93010; 93306; 94640; 94664; 94760; 96374; 96375; 96376; 97110; 97162; 97165; 99285-25; A9270; G0378; J2405; J3010; J3480; J7799; Q9967